=== PATIENT | female | born 1950 | race Caucasian/White ===

== ENCOUNTER 2025-02-12 09:05 | Outpatient (AMB) | payer MEDICARE, BC, SELFPAY ==
--- NOTE | 2025-02-12 09:06 | A.OFFPC_ITS ---
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 Allergies No Known Allergies (No Known Allergies*) Allergy (Verified 02/12/25 09:06) Medication List - Last Reconciled 02/12/25 by Edna Ashley MD amlodipine 5 mg PO DAILY aspirin 81 mg PO DAILY atorvastatin 40 mg PO DAILY metformin 1,000 mg PO BID Tobacco use date assessed: 02/12/25 Fall risk assessment: No Falls in past year Last assessed Fall Risk: 02/12/25 Dental Screening Dental Screen Date: 02/12/25 Did you have a dental visit in the last 12 months?: Yes Did you have a dental problem in the last 6 months where you did not have access to dental care?: No Was dental information given to patient?: Patient has dentist HPI HPI Comments History of Present Illness Details The patient is a 74 year old female presenting to [facility]. Type 2 diabetes mellitus: The patient has not checked her blood sugars at home recently but believes they are likely good. She reports unintentional weight loss, which she attributes to stress. She states her weight in June was similar to her current weight of 154 lbs. She takes metformin 1000 mg twice daily. Hypertension: The patient is on amlodipine 5 mg daily for blood pressure. Hyperlipidemia: The patient takes atorvastatin 40 mg daily. Tobacco Use: The patient reports smoking less, now consuming less than half a pack of cigarettes per day. Preventive Care: The patient is due for a colonoscopy but has not had it done. The primary indication is family history, and she denies a personal history of polyps. She was contacted for a low-dose CT scan for lung cancer screening but has not yet scheduled it. The notification for the lung cancer screening was received in the spring or early summer. She received her flu shot, COVID-19 shot, and pneumonia shots in late November or early December. She reports receiving the RSV vaccine last year. A mammogram was completed in December 2024, and the results have been received. Social History: - Tobacco use: The patient reports smoki ng less than half a pack of cigarettes per day. - Nutrition: She usually eats fruit in t he morning. - Water intake: She reports drinking ple nty of water, consistently at least 64 ounces per day. - Stress: She identifies stress as a fac tor in her recent weight loss. 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 - Healthcare: [facility] also [facility] and has an annual appointment scheduled for September of next year. . [facility] Medical History (Updated 02/12/25 @ 10:28 by Edna Ashley MD) Diabetes mellitus type 2 in nonobese Cataract Mixed hyperlipidemia Primary hypertension Surgical History (Updated 02/10/25 @ 17:08 by Tricia Sen) History of colonoscopy (~10/02/14) Social History Housing: House Patient Tobacco Use Status: Current everyday Tobacco user Cigarettes Per Day: 10 Years Smoked: 40 years e-Cigarette/Vaping Use: Never Used Current occupational status: retired Questionnaire PHQ-9 Over the last 2 weeks, how often have you been bothered by any of the following problems? 1. Little interest or pleasure in doing things: not at all 2. Feeling down, depressed, or hopeless: not at all 3. Trouble falling or staying asleep, or sleeping too much: not at all 4. Feeling tired or having little energy: not at all 5. Poor appetite or overeating: not at all 6. Feeling bad about yourself - or that you are a failure or have let yourself or your family down: not at all 7. Trouble concentrating on things, such as reading the newspaper or watching television: not at all 8. Moving or speaking so slowly that other people could have noticed. Or the opposite - being so fidgety or restless that you have been moving around a lot more than usual: not at all 9. Thoughts that you would be better off or of hurting yourself in some way: not at all Total score: 0 Depression Screening Interpretation: Negative Depression Screening Done: Yes 87424 - PHQ-9 Billing: Yes Source: Developed by Drs. Vini Munoz, Laila Tinoco, Sal Esqueda and colleagues, with an educational saranya from [employer]. AUDIT C Alcohol Use Questionnaire (AUDIT-C) 1. How often do you have a drink containing alcohol?: Never 3. How often do you have six or more drinks on one occasion?: Never Total Score: 0 Review of Systems Narrative Review of Systems - Constitutional: Reports unintentional weight loss. - Feels cold. - Gastrointestinal: Denies any changes in bowel movements, which are regular, and denies blood in stool. Physical exam (Primary Care) Vital Signs: Last Vital Signs Temp 96.9 F 02/12/25 09:09 Pulse 91 02/12/25 09:09 Resp 16 02/12/25 09:09 BP 124/60 02/12/25 09:09 Pulse Ox 99 02/12/25 09:09 Oxygen Delivery Method Room Air 02/12/25 09:09 BMI result Body Mass Index 26.0 Tobacco/Smoking Status: Tobacco use Status Tobacco use date assessed 02/12/25 02/12/25 09:06 Patient Tobacco Use Status Current everyday Tobacco 02/12/25 09:13 e-Cigarette/Vaping Use Never Used 02/12/25 09:13 PHQ-9: PHQ-9 Score PHQ-9: Total score 0 02/12/25 10:33 Depression Screening Interpretation: Negative Narrative Physical Exam - Respiratory: Lungs with slight coarseness, no wheezing noted. - Cardiovascular: Heart sounds normal, regular rate and rhythm, with a soft murmur. - Neck: Good blood flow in carotids, no bruits or abnormal sounds. - Abdomen: Normal bowel sounds, no pain on palpation. Coding Level of Care Code Est Pt Level 4 (70635) Add On Problem Visit Only Diagnoses Primary hypertension I10 Mixed hyperlipidemia E78.2 Additional Codes PHQ-9 - 75532 - PHQ-9 Billing: Yes ([id number]) Assessment & Plan Assessment & Plan (1) Primary hypertension: Code(s): I10 - Essential (primary) hypertension Category: Medical (2) Mixed hyperlipidemia: Code(s): E78.2 - Mixed hyperlipidemia Category: Medical Plan Assessment and Plan 1. Type 2 diabetes mellitus - The patient reports unintentional weight loss, which she attributes to stress. - She has not been checking her sugars at home. - Plan includes lab work to check kidney function and a urine microalbumin to screen for proteinuria. 2. Preventive Care - Colon Cancer Screening - The patient is overdue for a colonoscopy, which is indicated due to family history. - She was advised to contact Dr. Valero's office and to authorize the release of all previous notes and colonoscopy reports. - Will monitor for any blood in stool or changes in bowel habits. 3. Preventive Care - Lung Cancer Screening - Patient is a current smoker. - She was notified to schedule a low-dose CT scan but has not done so yet. Has done these at [facility] in the past. - She was advised to call and schedule the appointment at the [place] facility she used previously and ensure a copy of the report is sent to this office. 4. Tobacco Use - The patient has reduced smoking to less than half a pack daily. - Continue to encourage smoking cessation. 6. Health Maintenance - She will follow up for a physical exam on in May 2025 Plan - Obtain lab work today, including kidney function and a urine microalbumin. - Patient to schedule a low-dose CT scan for lung cancer screening at the [facility] and ensure a copy of the report is sent to this office. - Patient to follow up with Dr. Valero's office and provide authorization for the release of previous colonoscopy records. - Continue current medications as prescribed - Continue to encourage smoking cessation. Discussion Notes Patient Instructions - Please get your blood work done today. We will check your kidney function and look for protein in your urine. - Please call to schedule your low-dose CT scan for lung cancer screening. You can go to the facility in [place], but make sure they send me a copy of the report. - Watch for any new symptoms, such as blood in your stool or any changes in your bowel movements, and let me know if they occur. - Continue taking all of your current medications as prescribed. Orders: Orders Complete Blood Count Auto Diff Today E11.9 - Type 2 diabetes mellitus without complications, E78.2 - Mixed hyperlipidemia, I10 - Essential (primary) hypertension Comprehensive Met. Panel Today E11.9 - Type 2 diabetes mellitus without complications, E78.2 - Mixed hyperlipidemia, I10 - Essential (primary) hypertension Microalbumin, Random (w Creat) Today E11.9 - Type 2 diabetes mellitus without complications, E78.2 - Mixed hyperlipidemia, I10 - Essential (primary) hypertension LDL Cholesterol Direct Today E11.9 - Type 2 diabetes mellitus without complications, E78.2 - Mixed hyperlipidemia, I10 - Essential (primary) hypertension TSH reflex Free T4 Today E11.9 - Type 2 diabetes mellitus without complications, E78.2 - Mixed hyperlipidemia, I10 - Essential (primary) hypertension
[2025-02-12 09:09] VITALS: BP 124/60; PULSE 91; RESP 16; TEMP 36.1; O2SAT 99; BMI 26.0
== END 2025-02-12 10:48 | disposition home or self-care (01) ==
LOC: HO.HMCHD 09:05
PROVIDERS: PCP Internal Medicine; Visit Provider Internal Medicine
DX: I10 Essential (primary) hypertension (principal); E78.2 Mixed hyperlipidemia

== ENCOUNTER → 2025-02-12 09:05 | Outpatient (BNVA) | payer MEDICARE, BC, SELFPAY | PROVIDERS: PCP Internal Medicine; Visit Provider Internal Medicine | DX: I10 Essential (primary) hypertension (principal); E78.2 Mixed hyperlipidemia; E11.9 Type 2 diabetes mellitus without complications; F17.210 Nicotine dependence, cigarettes, uncomplicated; Z12.11 Encounter for screening for malignant neoplasm of colon | CPT/HCPCS: 36415; 80053; 82043; 82570; 83721; 84443; 85025; 96127; 99212 ==

== ENCOUNTER 2025-02-12 10:59 | Outpatient (REF) | payer MEDICARE, BC, SELFPAY ==
[2025-02-12 13:06] LABS: MANUAL DIFF FLAG NO
[2025-02-12 13:09] LABS: Hematocrit 41.1 % (37.0-47.0); Hemoglobin 13.4 g/dl (12.0-16.0); Imm Gran Abs Auto 0.02 X10*3/uL (0.00-0.03); Imm Gran Pct Auto 0.3 % (0.0-0.4); Lymphocytes Absolute Auto 1.2 X10*3/uL (1.2-4.9); Mean Corpuscular HGB Conc 32.6 g/dl (31.0-35.0); Mean Corpuscular Hemoglobin 29.1 pg (27.0-33.0); Mean Corpuscular Volume 89.3 fL (80.0-98.0); NRBC Abs Auto 0.000 X10*3/uL (0.0-0.012); NRBC Pct Auto 0.0 /100WBC (0.0-0.2); Platelet Count 196 X10*3/uL (160-400); Red Blood Count 4.60 X10*6/uL (4.20-5.50); White Blood Count 6.8 X10*3/uL (4.8-10.8)
[2025-02-12 13:44] LABS: Alanine Aminotransferase 14 U/L (0-31); Albumin Level 4.9 g/dL (3.5-5.0); Alkaline Phosphatase 85 U/L (39-117); Anion Gap 10 (12-20); Aspartate Amino Transferase 18 U/L (5-31); Blood Urea Nitrogen 19 mg/dL (9-16); Calcium 9.8 mg/dL (8.4-10.2); Carbon Dioxide 30 mmol/L (22-29); Chloride 106 mmol/L (96-108); Estimated Glomerular Filt Rate 48; Potassium 4.1 mmol/L (3.3-5.1); Sodium 142 mmol/L (135-145); Total Protein 7.7 g/dL (6.5-8.0)
[2025-02-12 13:52] LABS: Microalbum/Creatinine Ratio Ur 208.2 ug/mg cr (<30)
== END 2025-02-12 11:00 | disposition home or self-care (01) ==
LOC: HO.10HDL 10:59
PROVIDERS: Visit Provider Internal Medicine
DX: I10 Essential (primary) hypertension (principal); E78.2 Mixed hyperlipidemia; E11.9 Type 2 diabetes mellitus without complications
CPT/HCPCS: 36415; 80053; 82043; 82570; 83721; 84443; 85025